=== PATIENT | female | born 1980 | race Caucasian/White ===

== ENCOUNTER 2020-09-25 18:38 | Outpatient (REF) | payer MEDICAID, SELFPAY ==
--- NOTE | 2020-09-25 | MR_ITS ---
EXAMINATION: MRI BRAIN WITHOUT CONTRAST CLINICAL INFORMATION: Seizure disorder. Headache, numbness, vertigo, and double vision. COMPARISON: None TECHNIQUE: Multiprojectional and multisequential images of brain were obtained without contrast. FINDINGS: There is no restricted diffusion seen to suspect any acute ischemia. The uriarte to white matter differentiation is maintained without any visible flow void signal abnormality on gradient-echo sequence to suspect an acute or chronic hemorrhage. No T2/FLAIR signal abnormality seen either. The lateral ventricles are symmetrical in size and configuration without enlargement. Bilateral temporal horns are symmetrical and normal. There is normal symmetry of bilateral temporal lobes especially the mesial segments are symmetrical and normal. There is normal flow void signal seen in the major cerebral vasculature. The paranasal sinuses are well aerated and clear. There is normal symmetry of optic globe and optic nerves. MR/MR head/brain wo con IMPRESSION: Unremarkable MRI brain without contrast.
== END 2020-09-25 18:39 | disposition home or self-care (01) ==
LOC: HO.MRI 18:38
PROVIDERS: Visit Provider Psychiatry & Neurology Neurology
DX: G40.909 Epilepsy, unspecified, not intractable, without status epilepticus (principal)
CPT/HCPCS: 70551

== ENCOUNTER 2020-09-25 19:29 | Emergency (ER) | payer MEDICAID, SELFPAY ==
[2020-09-25 19:57] VITALS: BP 99/55; PULSE 74; RESP 16; TEMP 37; O2SAT 98; BMI 29.7
--- NOTE | 2020-09-25 20:10 | XR_ITS ---
EXAMINATION: 1. LEFT ANKLE. 2. LEFT FOOT. CLINICAL INFORMATION: Pain. COMPARISON: None TECHNIQUE: 1. Left ankle. 3 views 2. Left foot. 3 views FINDINGS: 1. Left ankle. No fracture or dislocation. Ankle mortise is congruent. 2. Left foot. No fracture or dislocation. Joint spaces are normal. No soft tissue abnormality. XR/XR foot LT 2V IMPRESSION: 1. Left ankle. Normal. 2. Left foot. Normal.
--- NOTE | 2020-09-25 20:10 | XR_ITS ---
EXAMINATION: 1. LEFT ANKLE. 2. LEFT FOOT. CLINICAL INFORMATION: Pain. COMPARISON: None TECHNIQUE: 1. Left ankle. 3 views 2. Left foot. 3 views FINDINGS: 1. Left ankle. No fracture or dislocation. Ankle mortise is congruent. 2. Left foot. No fracture or dislocation. Joint spaces are normal. No soft tissue abnormality. XR/XR ankle LT min 3V IMPRESSION: 1. Left ankle. Normal. 2. Left foot. Normal.
--- NOTE | 2020-09-25 21:09 | ED.LOWEXIN ---
HPI - Extremity Injury (Lower) General Chief Complaint: Extremity Injury, Lower Stated Complaint: foot pain Time Seen by Provider: 09/25/20 20:10 Source: patient Mode of arrival: ambulatory Limitations: no limitations History of Present Illness HPI Narrative: patient presents to ED for left foot/big toe pain after foot was stepped on. Patient denies falling to the ground or any other trauma. Patient states he slightly twisted her ankle when her foot was stepped on. Related Data Previous Rx's Medication Instructions Recorded cyclobenzaprine 10 mg PO TID PRN #15 tab 09/25/20 naproxen 500 mg PO BID PRN #20 tab 09/25/20 Allergies Allergy/AdvReac Type Severity Reaction Status Date / Time No Known Allergies Allergy Verified 09/25/20 20:25 bee Allergy Unknown hives Uncoded 03/08/14 00:00 Review of Systems Review of Systems: Yes all other systems are reviewed and are negative Constitutional: Constitutional: Reports as per HPI and Reports no additional constitutional complaints Eyes: Eyes: Reports as per HPI and Reports no additional eye complaints ENT: Reports system reviewed and no additional complaints, except as documented and Reports as per HPI Cardiovascular: Cardiovascular: Reports as per HPI and Reports no additional cardiovascular complaints Respiratory: Respiratory: Reports as per HPI and Reports no additional respiratory complaints Gastrointestinal: Gastrointestinal: Reports as per HPI and Reports no additional gastrointestinal complaints Genitourinary: Genitourinary: Reports no additional female genitourinary complaints and Reports as per HPI Musculoskeletal: Musculoskeletal: Reports no additional musculoskeletal complaints and Reports as per HPI Comments: left foot/big toe pain Neurologic: Reports system reviewed and no additional complaints, except as documented and Reports as per HPI Psychiatric: Psychiatric: Reports no additional psychiatric complaints and Reports as per HPI [facility] Past Medical History Medical History (Updated 09/25/20 @ 21:23 by PAULINE Joaquin) Anxiety Asthma Depression Seizures Social History Social History Smoking Status: Former smoker Use of substances other than those prescribed or required for medical reasons: No Advance Directives: No Advance Directives Information Provided: No Physical Exam Vital Signs: Vital Signs: Vital Signs Temp Pulse Resp BP Pulse Ox 09/25/20 19:57 98.6 F 74 16 99/55 L 98 Body Mass Index 29.7 Const: General: cooperative, healthy appearing, comfortable, no acute distress, well developed and alert Orientation/consciousness: oriented to place, oriented to time and patient oriented x3 HENMT: Head: Yes normal to inspection, Yes No palpable skull fracture present, No contusion, No laceration, No raccoon eyes, No scalp tenderness and No Temporal artery tenderness present Eyes: General: appearance normal, both eyes and all related structures Visual Aguilar: normal visual aguilar by confrontation Neck: Neck: Yes normal visual inspection, Yes full ROM, Yes no lymphadenopathy and Yes no meningeal signs Chest: Chest palpation & inspection: normal inspection of the chest, normal palpation of entire chest wall and no localized rib tenderness Resp: Effort & Inspection: normal respiratory effort and able to speak in complete sentences Cardio: Jugular venous distension: no JVD Heart sounds: S1 normal heart sound present and S2 normal heart sound present GI: Inspection: Yes normal to inspection and No abdominal wall ecchymosis Palpation (GI): Soft to palpation, not firm, nontender and no guarding : General: No CVA tenderness and Yes no CVA tenderness Back/Spine/Pelvis: Back: no CVA tenderness, No CVA tenderness and No back tenderness Skin: General skin exam: no rashes or lesions noted Neuro: Other: limping when walking. General: oriented to person, oriented to place, oriented to time, patient oriented x3, no meningeal signs and CN's II-XI intact bilaterally Cranial nerves: Yes CN's II-XII intact bilaterally Extrem: Other: Left lower extremity positive for tenderness on palpation of dorsal aspect of foot near big toe and also on the toe. Negative for any ecchymosis. Negative for any tenderness on left ankle. Auguste test negative. Negative for any leg swelling, ecchymosis, calf pain, redness. Vascular exam is intact General: Yes normal to inspection and Yes full ROM Course Course Course Narrative: Patient will be given pain medication and patient will be sent for x-rays Reevaluation(s) Reevaluation #1: x-ray negative for any foot or ankle fracture. Patient prefer walking boot due to her living on 2nd floor not be able to use crutches. Time: 21:21 MDM - Extremity Injury (Lower) MDM Narrative Medical decision making narrative: foot sprain/contusion Discharge Plan Discharge Clinical Impression: Contusion, Foot sprain Patient Disposition: Home, Self-Care Instructions: Contusion in Adults (ED), Foot Sprain (ED) Additional Instructions: return to ED for any worsening pain, swelling, redness, ecchymoses, bluish discoloration of toes, numbness / tingling, fever, chills, chest pain, shortness of breath, or any other concerning symptoms. Please follow up with your PCP Prescriptions: New naproxen 500 mg tablet 500 mg PO BID PRN (Reason: pain) Qty: 20 RF: 0 cyclobenzaprine 10 mg tablet 10 mg PO TID PRN (Reason: muscle spasm) Qty: 15 RF: 0 Stand Alone Forms: Work/School Release Print Language: Urdu
[2020-09-25] MEDS: Ketorolac Tromethamine 30 MG/ML VIAL IM (21:24)
== END 2020-09-25 21:40 | disposition home or self-care (01) ==
PROVIDERS: Emergency Provider Emergency Medicine
DX: S90.32XA Contusion of left foot, initial encounter (principal); S93.602A Unspecified sprain of left foot, initial encounter; M79.672 Pain in left foot; Y29.XXXA Contact with blunt object, undetermined intent, initial encounter; Y93.9 Activity, unspecified; Y92.9 Unspecified place or not applicable; Y99.9 Unspecified external cause status; Z79.899 Other long term (current) drug therapy; Z87.891 Personal history of nicotine dependence
CPT/HCPCS: 73610; 73620; 96372; 99283; 99284; J1885

== ENCOUNTER 2020-10-12 12:32 | Outpatient (REF) | payer MEDICAID, SELFPAY ==
--- NOTE | 2020-10-12 12:40 | EEG_ITS ---
24-hour ambulatory EEG The waking background activity consists of a symmetrical, well-defined 10 hertz posterior alpha frequency, intermixed anteriorly with low-voltage fast frequencies. Drowsiness is characterized by diffuse theta slowing. Stages 1 to 3 of sleep are noted with symmetrical sleep spindles, vertex sharp transients, and K complexes. Brief periods of delta sleep are also noted. Arousals are frequent and unremarkable. A few instances of small sharp and slow discharges are seen from the left hemisphere. Two episodes of 2 to 3-second bursts of high voltage 4 to 5 hertz theta are seen symmetrically over the frontal region. The patient was asymptomatic during that time. There is a notation of an event of lightheadedness in the patient's diary, however, there is no abnormality on the EEG that coincides with that. IMPRESSION: This EEG is considered suspicious because of a couple of sharp and slow discharges from the left hemisphere and 2 bursts of high voltage 2 to 3-second 4 to 5 hertz theta from the frontal region. Clinical correlation is suggested. These findings are not developed well enough to be diagnostic for seizure. MD TESSA Martin/CHEVY / [id number]
== END 2020-10-12 12:33 | disposition home or self-care (01) ==
LOC: HO.NEURO 12:32
PROVIDERS: Visit Provider Psychiatry & Neurology Neurology
DX: G40.909 Epilepsy, unspecified, not intractable, without status epilepticus (principal)
CPT/HCPCS: 95708

== ENCOUNTER 2020-11-07 13:29 | Outpatient (REF) | payer MEDICAID, SELFPAY | END 2020-11-07 13:30 | disposition home or self-care (01) | LOC: HO.LAB 13:29 | PROVIDERS: Visit Provider Internal Medicine | DX: Z20.828 Contact with and (suspected) exposure to other viral communicable diseases (principal) | CPT/HCPCS: C9803; U0003 ==

== ENCOUNTER 2020-11-13 08:06 | Outpatient (REF) | payer MEDICAID, SELFPAY | END 2020-11-13 08:07 | disposition home or self-care (01) | LOC: HO.LAB 08:06 | PROVIDERS: PCP Nurse Practitioner Primary Care; Visit Provider Internal Medicine | DX: Z20.828 Contact with and (suspected) exposure to other viral communicable diseases (principal) | CPT/HCPCS: C9803; U0003 ==

== ENCOUNTER 2021-02-26 09:33 | Emergency (ER) | payer MEDICAID, SELFPAY ==
--- NOTE | 2021-02-26 | ECG_ITS ---
Test Reason : SYNCOPE Blood Pressure : / mmHG Vent. Rate : 069 BPM Atrial Rate : 069 BPM P-R Int : 116 ms QRS Dur : 082 ms QT Int : 398 ms P-R-T Axes : 048 075 038 degrees QTc Int : 426 ms Normal sinus rhythm Normal ECG No previous ECGs available Referred By: Generic ED Physician Electronically Signed By:COLTEN TIRADO MD
[2021-02-26 09:59] VITALS: BP 108/57; PULSE 70; RESP 18; TEMP 36.7; O2SAT 98; BMI 25.8
--- NOTE | 2021-02-26 10:20 | PC.NURSE ---
Pt went to stand to get out of chair in triage and stated that she was dizzy. She was lowered to the floor because she felt suddenly faint. She never lost consciousness but felt very weak and eyes closed. She was able to groan in response to questions being asked. Pt brought to stretcher in [facility] area as she has reported numerous covid-like symptoms.
--- NOTE | 2021-02-26 10:50 | ED_ITS ---
HPI - General Adult General Chief complaint: Dyspnea Stated complaint: asthma - SOB Time Seen by Provider: 02/26/21 10:50 Source: patient Mode of arrival: ambulatory Limitations: no limitations History of Present Illness HPI narrative: dizziness and shortness of breath for one week Onset (ago): week(s) Severity: moderate Quality: other (lightheaded and chills) Pain Consistency: intermittent Related Data Previous Rx's Medication Instructions Recorded cyclobenzaprine 10 mg PO TID PRN #15 tab 09/25/20 naproxen 500 mg PO BID PRN #20 tab 09/25/20 Allergies Allergy/AdvReac Type Severity Reaction Status Date / Time bee Allergy Unknown hives Uncoded 02/26/21 09:59 Review of Systems Constitutional: Constitutional: Reports no additional constitutional complaints Eyes: Eyes: Reports no additional eye complaints ENT: Denies dizziness Cardiovascular: Cardiovascular: Reports no additional cardiovascular complaints Respiratory: Respiratory: Reports as per HPI Gastrointestinal: Gastrointestinal: Reports no additional gastrointestinal complaints Genitourinary: Genitourinary: Reports no additional female genitourinary complaints Musculoskeletal: Musculoskeletal: Reports no additional musculoskeletal complaints Integumentary/Breasts: Skin/Breast: Denies rash Neurologic: Reports system reviewed and no additional complaints, except as documented, Denies dizziness and Denies Sensory deficit (Neuro) Psychiatric: Psychiatric: Denies anxiety PMFSH Past Medical History Medical History Anxiety Asthma Depression Seizures Social History Social History Smoking Status: Former smoker Advance Directives: No Physical Exam Vital Signs: Vital Signs: Last Vital Signs Temp 98.0 F 02/26/21 09:59 Pulse 70 02/26/21 09:59 Resp 18 02/26/21 09:59 BP 108/57 L 02/26/21 09:59 Pulse Ox 98 02/26/21 09:59 Body Mass Index 25.8 Const: General: healthy appearing Nutritional Appearance: average body habitus Orientation/consciousness: oriented to person and patient oriented x3 Limitations: no limitations HENMT: Head: Yes normal to inspection Ears: external ears normal General nose exam: Normal external nose present Mouth: Normal oral and palatal mucosa present and oropharynx normal Throat: Yes posterior oropharynx normal Eyes: General: appearance normal, both eyes and all related structures Neck: Other: supple Neck: Yes normal visual inspection Chest: Chest palpation & inspection: normal inspection of the chest Resp: Auscultation: clear to auscultation bilaterally Cardio: Jugular venous distension: no JVD Rate: regular rate Rhythm: regular rhythm Heart sounds: S1 normal heart sound present and S2 normal heart sound present GI: Inspection: Yes normal to inspection Palpation (GI): Soft to palpation, nontender and No hepatosplenomegaly present Auscultation: normal bowel sounds : General: Yes no CVA tenderness Back/Spine/Pelvis: Back: no CVA tenderness Skin: Other: old colon to face and hands Neuro: General: oriented to person and patient oriented x3 Cranial nerves: Yes CN's II-XII intact bilaterally Motor exam (neuro): 5/5 motor strength present throughout Sensory Exam: No Sensory deficit (Neuro) Extrem: General: Yes normal to inspection Psych: Appearance: grossly normal Course Course Course Narrative: resting comfortably Medical Decision Making MDM Narrative Medical decision making narrative: chemistries and CBC with in normal limits. Pending COVID, still concerned about Covid but normal oxygen. Lab Data Result diagrams: 02/26/21 11:31 02/26/21 11:31 Labs: Lab Results 02/26/21 02/26/21 Range/Units 11:31 11:31 WBC 7.1 (4.8-10.8) X10*3/uL RBC 4.42 (4.20-5.50) X10*6/uL Hgb 11.9 L (12.0-16.0) g/dl Hct 37.9 (37-47) % MCV 85.7 (80-98) fL MCH 26.9 L (27.0-33.0) pg MCHC 31.4 (31.0-35.0) g/dl RDW 15.8 (11.0-16.0) % Plt Count 338 (160-400) X10*3/uL MPV 10.2 (9.4-12.3) fL Immature Gran % (Auto) 0.3 (0.0-0.4) % Neut % (Auto) 63.8 (45-73) % Lymph % (Auto) 27.6 (20-40) % Jefferson % (Auto) 7.0 (2-11) % Eos % (Auto) 1.3 (0-4) % Baso % (Auto) 0.0 (0-2) % Lymph # (Auto) 2.0 (1.2-4.9) X10*3/uL Jefferson # (Auto) 0.5 (0.1-1.2) X10*3/uL Eos # (Auto) 0.1 (0.0-0.4) X10*3/uL Baso # (Auto) 0.0 (0.0-0.2) X10*3/uL Abs Immat Gran (auto) 0.02 (0.00-0.03) X10*3/uL Absolute Neuts (auto) 4.5 (2.0-8.3) X10*3/uL Absolute Nucleated RBC 0.000 (0.0-0.012) X10*3/uL Nucleated RBC % (auto) 0.0 (0.0-0.2) /100WBC Sodium 139 (135-145) mmol/L Potassium 3.8 (3.3-5.1) mmol/L Chloride 107 (96-108) mmol/L Carbon Dioxide 25 (22-29) mmol/L Anion Gap 11 L (12-20) BUN 14 (9-16) mg/dL Creatinine 0.63 (0.5-1.4) mg/dL Estim Creat Clear Calc 90.2 Estimated GFR > 60 Random Glucose 93 (60-115) mg/dL Calcium 8.8 (8.4-10.2) mg/dL Discharge Plan Discharge Clinical Impression: Upper respiratory infection Qualifiers: URI type: unspecified viral URI Qualified Code(s): J06.9 - Acute upper respiratory infection, unspecified Patient Disposition: Home, Self-Care Prescriptions: No Action naproxen 500 mg tablet 500 mg PO BID PRN (Reason: pain) Qty: 20 RF: 0 cyclobenzaprine 10 mg tablet 10 mg PO TID PRN (Reason: muscle spasm) Qty: 15 RF: 0 Referrals: Dawna Conklin, ALISA [Emergency Nurse] - 2 days
[2021-02-26 11:36] LABS: MANUAL DIFF FLAG NO
[2021-02-26 11:37] LABS: Eosinophils Absolute Auto 0.1 X10*3/uL (0.0-0.4); Eosinophils Percent Auto 1.3 % (0-4); Hematocrit 37.9 % (37-47); Hemoglobin 11.9 g/dl (12.0-16.0); Imm Gran Abs Auto 0.02 X10*3/uL (0.00-0.03); Imm Gran Pct Auto 0.3 % (0.0-0.4); Lymphocytes Percent Auto 27.6 % (20-40); Mean Corpuscular HGB Conc 31.4 g/dl (31.0-35.0); Mean Corpuscular Hemoglobin 26.9 pg (27.0-33.0); Mean Corpuscular Volume 85.7 fL (80-98); Mean Platelet Volume 10.2 fL (9.4-12.3); Monocytes Absolute Auto 0.5 X10*3/uL (0.1-1.2); Neutrophils Absolute Auto 4.5 X10*3/uL (2.0-8.3); Neutrophils Percent Auto 63.8 % (45-73); Platelet Count 338 X10*3/uL (160-400); Red Blood Count 4.42 X10*6/uL (4.20-5.50); Red Cell Distribution Width 15.8 % (11.0-16.0); White Blood Count 7.1 X10*3/uL (4.8-10.8)
[2021-02-26 12:09] LABS: Anion Gap 11 (12-20); Blood Urea Nitrogen 14 mg/dL (9-16); Calcium 8.8 mg/dL (8.4-10.2); Carbon Dioxide 25 mmol/L (22-29); Chloride 107 mmol/L (96-108); Creatinine Clr Calc Pharmacy 90.2; Estimated Glomerular Filt Rate > 60; Glucose Random 93 mg/dL (60-115); Potassium 3.8 mmol/L (3.3-5.1); Sodium 139 mmol/L (135-145)
[2021-02-26 13:06] LABS: Glucose, Whole Blood 107 mg/dL (60-115)
[2021-02-26 13:17] LABS: Influenza A PCR NEGATIVE (Negative); Influenza B PCR NEGATIVE (Negative); Resp Syncy Virus RNA Qual PCR NEGATIVE (Negative); SARS COV2 PCR INHOUSE POSITIVE (Negative)
== END 2021-02-26 14:00 | disposition home or self-care (01) ==
PROVIDERS: Emergency Provider Emergency Medicine; PCP Nurse Practitioner Primary Care
DX: J06.9 Acute upper respiratory infection, unspecified (principal); R06.00 Dyspnea, unspecified; R42 Dizziness and giddiness; Z79.899 Other long term (current) drug therapy; Z87.891 Personal history of nicotine dependence; Z20.822 Contact with and (suspected) exposure to COVID-19
CPT/HCPCS: 0241U; 36415; 80048; 82947; 85025; 93005; 99283

== ENCOUNTER 2022-05-23 12:48 | Outpatient (REF) | payer MEDICAID, SELFPAY ==
--- NOTE | 2022-05-23 12:54 | EEG_ITS ---
HISTORY OF PRESENT ILLNESS: This is the waking background activity consists of a moderate voltage 11 hertz posterior alpha frequency, intermixed anteriorly with low-voltage fast frequencies. Drowsiness is characterized with diffuse theta slowing. During sleep, symmetrical frontal central sleep spindles, vertex sharp transients, and K complexes developed. Delta sleep is noted. Arousals are unremarkable. Three episodes of low to medium amplitude sharp waves are seen from the left hemisphere occurring in isolated forms. IMPRESSION: This 24-hour ambulatory EEG is considered minimally abnormal due to 3 isolated sharp transients seen from the left hemisphere that may indicate some element of underlying cerebral irritability. No definite seizure discharges are seen. MD TESSA Martin/CHEVY / [id number]
== END 2022-05-23 12:49 | disposition home or self-care (01) ==
LOC: HO.NEURO 12:48
PROVIDERS: PCP Nurse Practitioner Primary Care; Visit Provider Psychiatry & Neurology Neurology
DX: G40.909 Epilepsy, unspecified, not intractable, without status epilepticus (principal)
CPT/HCPCS: 95708

== ENCOUNTER 2023-12-10 12:13 | Outpatient (REF) | payer MEDICAID, SELFPAY ==
[2023-12-10 13:53] LABS: Valproate < 12.5 mcg/mL (50.0-100.0)
== END 2023-12-10 12:14 | disposition home or self-care (01) ==
LOC: HO.LAB 12:13
PROVIDERS: PCP Nurse Practitioner Primary Care; Visit Provider Psychiatry & Neurology Neurology
DX: G40.909 Epilepsy, unspecified, not intractable, without status epilepticus (principal); Z79.899 Other long term (current) drug therapy
CPT/HCPCS: 36415; 80164

== ENCOUNTER 2024-05-06 14:51 | Outpatient (REF) | payer MEDICAID, SELFPAY ==
[2024-05-06 16:37] LABS: Valproate 39.9 mcg/mL (50.0-100.0)
== END 2024-05-06 14:52 | disposition home or self-care (01) ==
LOC: HO.LAB 14:51
PROVIDERS: PCP Internal Medicine; Visit Provider Psychiatry & Neurology Neurology
DX: G40.909 Epilepsy, unspecified, not intractable, without status epilepticus (principal)
CPT/HCPCS: 36415; 80164

== ENCOUNTER 2024-05-12 08:33 | Outpatient (REF) | payer MEDICAID, SELFPAY ==
--- NOTE | ~2024-05-12 | XR_ITS ---
EXAMINATION: XR FOOT, LEFT CLINICAL INFORMATION: Left foot pain Injured toe in May 2023 COMPARISON: Left foot 09/25/2020 TECHNIQUE: AP, lateral, and oblique views of the left foot. FINDINGS: The bones and soft tissues are normal. No fracture. Alignment is anatomic. Joint spaces are maintained. Small calcific density is seen at the insertion of the Achilles tendon. XR/XR foot LT min 3V IMPRESSION: No acute bony abnormality.
--- NOTE | ~2024-05-12 | XR_ITS ---
EXAMINATION: XR CHEST CLINICAL INFORMATION: COPD COMPARISON: Chest 120-stat chest 11/25/2019 TECHNIQUE: 2 views of the chest were obtained. FINDINGS: No significant abnormality is noted involving the heart, lungs, mediastinum, bony thorax or soft tissues. XR/XR chest 2V IMPRESSION: No acute disease.
[2024-05-12 08:42] LABS: MANUAL DIFF FLAG NO
[2024-05-12 09:11] LABS: Basophils Percent Auto 0.5 % (0-2); Eosinophils Absolute Auto 0.2 X10*3/uL (0.0-0.4); Hematocrit 37.3 % (37.0-47.0); Hemoglobin 11.8 g/dl (12.0-16.0); Imm Gran Abs Auto 0.04 X10*3/uL (0.00-0.03); Imm Gran Pct Auto 0.5 % (0.0-0.4); Lymphocytes Absolute Auto 2.4 X10*3/uL (1.2-4.9); Lymphocytes Percent Auto 28.9 % (20-40); Mean Corpuscular HGB Conc 31.6 g/dl (31.0-35.0); Mean Platelet Volume 10.4 fL (9.4-12.3); Monocytes Absolute Auto 0.7 X10*3/uL (0.1-1.2); Monocytes Percent Auto 7.8 % (2-11); Neutrophils Absolute Auto 5.1 x10*3/uL (2.0-8.3); Neutrophils Percent Auto 60.3 % (45-73); Platelet Count 390 X10*3/uL (160-400); Red Blood Count 4.72 X10*6/uL (4.20-5.50); Red Cell Distribution Width 17.5 % (11.0-16.0); White Blood Count 8.4 X10*3/uL (4.8-10.8)
[2024-05-12 10:01] LABS: Alanine Aminotransferase 13 U/L (0-31); Alkaline Phosphatase 78 U/L (39-117); Anion Gap 12 (12-20); Aspartate Amino Transferase 14 U/L (5-31); Bilirubin Total 0.2 mg/dL (0.0-1.0); Blood Urea Nitrogen 15 mg/dL (9-16); Calcium 8.5 mg/dL (8.4-10.2); Carbon Dioxide 26 mmol/L (22-29); Chloride 106 mmol/L (96-108); Cholesterol 116 mg/dL (<200); Estimated Glomerular Filt Rate > 60; Glucose Random 89 mg/dL (60-115); HDL Cholesterol 52 mg/dL (>40); LDL Cholesterol Calculated 51 mg/dL (<100); Potassium 3.8 mmol/L (3.3-5.1); Sodium 140 mmol/L (135-145); Total Protein 6.6 g/dL (6.5-8.0); Triglycerides 65 mg/dL (<150)
== END 2024-05-12 08:34 | disposition home or self-care (01) ==
LOC: HO.XRAY 08:33
PROVIDERS: PCP Internal Medicine; Visit Provider Internal Medicine
DX: Z00.00 Encounter for general adult medical examination without abnormal findings (principal); J44.9 Chronic obstructive pulmonary disease, unspecified; M79.672 Pain in left foot; F31.9 Bipolar disorder, unspecified; G40.109 Localization-related (focal) (partial) symptomatic epilepsy and epileptic syndromes with simple partial seizures, not intractable, without status epilepticus; J45.20 Mild intermittent asthma, uncomplicated
CPT/HCPCS: 36415; 71046; 73630; 80053; 80061; 85025

== ENCOUNTER 2024-07-01 13:35 | Outpatient (AMB) | payer MEDICAID, SELFPAY ==
--- NOTE | 2024-07-01 14:06 | A.OFFVIS_ITS ---
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 Patient reports about 2 months ago she injured her right ankle, when she was stepping of her step causing her to twist right ankle. For her left foot she was stepping on about a year ago and her pain has been recently increasing. Her pain is located at the base of her 2nd and 3rd digit at the top and bottom of her foot. She is unable to bend her toes. Intermittent swelling as well as numbness and tingling. 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 She reports she stepped off her step causing her to twist her right ankle. She also stubbed on her left foot about a year ago that has been recently worsening. She currently states she has pain at the base of her 2 nd and 3rd digit at the top and bottom of bilateral feet that is worse on her left foot. She is unable to bend her knee and cannot walk for than 30 minutes due to the pain. She also experiences intermittent swelling, numbness and tingling in her feet. Her pain is aggravated with icing and she finds no relief with ibuprofen. 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 Review of Systems Const All systems reviewed & are unremarkable except as noted in HPI and below Physical Exam Const General: cooperative, healthy appearing, comfortable, no acute distress, well developed and alert Orientation/consciousness: patient oriented x3 HEENT Head: Yes normal to inspection, Yes normocephalic and Yes atraumatic Eyes General: appearance normal, both eyes and all related structures Resp Effort & Inspection: normal respiratory effort and able to speak in complete sentences Cardio Rate: regular rate Peripheral pulses: Peripheral pulses 2+ throughout GI Palpation (GI): Soft to palpation Skin Lesions: no lesions Rashes: no rashes Neuro General: patient oriented x3 Extrem Other: Left foot: Normal to inspection. She has mild swelling over the dorsum of the foot with hypersensitivity to light palpation with the dorsum of the foot in line with the 2nd and 3rd toe. Hypersensitivity along the plantar aspect of the foot. Significant weakness with plantarflexion and dorsiflexion, inversion and eversion with and without resistance. Pulses are present and sensation are intact. Assessment & Plan Assessment & Plan (1) Tendinitis of left foot: Code(s): M77.52 - Other enthesopathy of left foot and ankle Category: Medical Plan An order for EMG of the BLE was ordered to further evaluate the nerve function. I encouraged physical therapy to activate her motion and strengthening and work on desensitization. Once the EMG is complete, I will contact her with the results. Orders: Orders NE electromyogram (EMG) Today R20.0 - Anesthesia of skin, R20.2 - Paresthesia of skin PT Evaluation and Treatment Today M77.52 - Other enthesopathy of left foot and ankle NE nerve conduction velocity Today R20.0 - Anesthesia of skin, R20.2 - Paresthesia of skin Patient Instructions: Scribed for Cuauhtemoc Campos PA-C, by Pelon Jones hospitalist medical director, on 07/01/2024 at 2:15 PM EST.? I, Cuauhtemoc Campos PA-C, have personally reviewed and agree with the information entered by the scribe. Coding Level of Care Code New Pt Level 3 (49506) Diagnoses Tendinitis of left foot M77.52
== END 2024-07-01 14:50 | disposition home or self-care (01) ==
PROVIDERS: PCP Internal Medicine; Visit Provider Physician Assistant
DX: M77.52 Other enthesopathy of left foot and ankle (principal)
CPT/HCPCS: 99203

== ENCOUNTER → 2024-07-01 13:35 | Outpatient (BNVA) | payer MEDICAID, SELFPAY | PROVIDERS: PCP Internal Medicine; Visit Provider Physician Assistant | DX: M77.52 Other enthesopathy of left foot and ankle (principal) | CPT/HCPCS: 99212 ==

== ENCOUNTER → 2024-07-20 12:16 | Outpatient (BNVA) | payer MEDICAID, SELFPAY | PROVIDERS: PCP Internal Medicine; Visit Provider Physician Assistant Surgical ==

== ENCOUNTER 2024-09-15 09:04 | Outpatient (REF) | payer MEDICAID, SELFPAY ==
--- NOTE | ~2024-09-15 | XR_ITS ---
EXAMINATION: XR CHEST CLINICAL INFORMATION: Respiratory TB. Preop chest x-ray. COMPARISON: 12/12/2023. TECHNIQUE: 2 views of the chest were obtained. FINDINGS: Cardiac, hilar, and mediastinal contours are normal. The lungs are clear bilaterally. There is no pneumothorax, effusion, or consolidation. There is no bony or soft tissue abnormality. Nipple bars are again noted in place. XR/XR chest 2V IMPRESSION: Normal chest. Electronically signed by: Eduardo Haynes MD 09/24/2024 04:15 PM EDT
[2024-09-15 09:36] LABS: MANUAL DIFF FLAG NO
[2024-09-15 10:34] LABS: Basophils Absolute Auto 0.1 X10*3/uL (0.0-0.2); Basophils Percent Auto 0.7 % (0-2); Eosinophils Absolute Auto 0.3 X10*3/uL (0.0-0.4); Eosinophils Percent Auto 3.6 % (0-4); Hematocrit 38.7 % (37.0-47.0); Hemoglobin 11.7 g/dl (12.0-16.0); Imm Gran Abs Auto 0.02 X10*3/uL (0.00-0.03); Imm Gran Pct Auto 0.3 % (0.0-0.4); Lymphocytes Absolute Auto 2.5 X10*3/uL (1.2-4.9); Lymphocytes Percent Auto 35.4 % (20-40); Mean Corpuscular HGB Conc 30.2 g/dl (31.0-35.0); Mean Corpuscular Hemoglobin 23.9 pg (27.0-33.0); Mean Platelet Volume 10.6 fL (9.4-12.3); Monocytes Absolute Auto 0.5 X10*3/uL (0.1-1.2); Monocytes Percent Auto 7.6 % (2-11); Neutrophils Absolute Auto 3.6 x10*3/uL (2.0-8.3); Neutrophils Percent Auto 52.4 % (45-73); Platelet Count 468 X10*3/uL (160-400); Red Cell Distribution Width 18.4 % (11.0-16.0)
[2024-09-15 10:36] LABS: INTERNATIONAL NORM RATIO 0.9 (0.9-1.1); Prothrombin Time 10.8 SEC (10.9-12.4)
[2024-09-15 11:33] LABS: Alanine Aminotransferase 17 U/L (0-31); Albumin Level 4.1 g/dL (3.5-5.0); Alkaline Phosphatase 92 U/L (39-117); Anion Gap 12 (12-20); Aspartate Amino Transferase 17 U/L (5-31); Bilirubin Total 0.3 mg/dL (0.0-1.0); Blood Urea Nitrogen 14 mg/dL (9-16); Calcium 9.2 mg/dL (8.4-10.2); Carbon Dioxide 24 mmol/L (22-29); Chloride 108 mmol/L (96-108); Estimated Glomerular Filt Rate > 60; Glucose Random 90 mg/dL (60-115); Sodium 140 mmol/L (135-145); Total Protein 6.6 g/dL (6.5-8.0)
== END 2024-09-15 09:05 | disposition home or self-care (01) ==
LOC: HO.XRAY 09:04
PROVIDERS: PCP Internal Medicine; Visit Provider Internal Medicine
DX: Z00.00 Encounter for general adult medical examination without abnormal findings (principal); Z11.1 Encounter for screening for respiratory tuberculosis
CPT/HCPCS: 36415; 71046; 80053; 85025; 85610

== ENCOUNTER → 2024-09-15 09:35 | Outpatient (BNV) | payer MEDICAID, SELFPAY | PROVIDERS: PCP Internal Medicine; Visit Provider Radiology Diagnostic Radiology | DX: Z01.818 Encounter for other preprocedural examination (principal) | CPT/HCPCS: 71046 ==

== ENCOUNTER 2024-09-22 10:02 | Outpatient (REF) | payer MEDICAID, SELFPAY ==
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
== END 2024-09-22 10:03 | disposition home or self-care (01) ==
LOC: HO.NEURO 10:02
PROVIDERS: PCP Internal Medicine; Visit Provider Physician Assistant
DX: R20.0 Anesthesia of skin (principal); R20.2 Paresthesia of skin
CPT/HCPCS: 95885; 95909

== ENCOUNTER → 2024-09-22 10:04 | Outpatient (BNV) | payer MEDICAID, SELFPAY | PROVIDERS: PCP Internal Medicine; Visit Provider Physical Medicine & Rehabilitation | DX: M54.16 Radiculopathy, lumbar region (principal); R20.0 Anesthesia of skin; R20.2 Paresthesia of skin | CPT/HCPCS: 95885; 95909 ==

== ENCOUNTER 2024-09-28 09:50 | Outpatient (REF) | payer MEDICAID, SELFPAY ==
[2024-09-28 10:26] LABS: MANUAL DIFF FLAG NO
[2024-09-28 11:03] LABS: Basophils Percent Auto 0.5 % (0-2); Eosinophils Absolute Auto 0.1 X10*3/uL (0.0-0.4); Eosinophils Percent Auto 2.3 % (0-4); Hematocrit 38.4 % (37.0-47.0); Hemoglobin 11.9 g/dl (12.0-16.0); Imm Gran Abs Auto 0.02 X10*3/uL (0.00-0.03); Imm Gran Pct Auto 0.3 % (0.0-0.4); Lymphocytes Percent Auto 32.9 % (20-40); Mean Corpuscular Hemoglobin 24.4 pg (27.0-33.0); Mean Corpuscular Volume 78.7 fL (80.0-98.0); Mean Platelet Volume 10.6 fL (9.4-12.3); Monocytes Absolute Auto 0.5 X10*3/uL (0.1-1.2); Monocytes Percent Auto 7.9 % (2-11); Neutrophils Absolute Auto 3.5 x10*3/uL (2.0-8.3); Neutrophils Percent Auto 56.1 % (45-73); Platelet Count 410 X10*3/uL (160-400); Red Blood Count 4.88 X10*6/uL (4.20-5.50); Red Cell Distribution Width 18.3 % (11.0-16.0); White Blood Count 6.2 X10*3/uL (4.8-10.8)
[2024-09-28 11:09] LABS: Prothrombin Time 11.2 SEC (10.9-12.4)
[2024-09-28 11:56] LABS: Ferritin 13 ng/mL (10-250)
== END 2024-09-28 09:51 | disposition home or self-care (01) ==
LOC: HO.LAB 09:50
PROVIDERS: PCP Internal Medicine; Visit Provider Internal Medicine
DX: D64.9 Anemia, unspecified (principal); Z41.1 Encounter for cosmetic surgery; F17.201 Nicotine dependence, unspecified, in remission; F32.2 Major depressive disorder, single episode, severe without psychotic features; G40.109 Localization-related (focal) (partial) symptomatic epilepsy and epileptic syndromes with simple partial seizures, not intractable, without status epilepticus; J45.909 Unspecified asthma, uncomplicated
CPT/HCPCS: 36415; 82728; 85025; 85610

== ENCOUNTER 2024-10-11 12:47 | Outpatient (REF) | payer MEDICAID, SELFPAY ==
[2024-10-11 13:34] LABS: Partial Thromboplastin Time 33.1 SEC (26.0-36.8)
== END 2024-10-11 12:48 | disposition home or self-care (01) ==
LOC: HO.LAB 12:47
PROVIDERS: PCP Internal Medicine; Visit Provider Internal Medicine
DX: F32.2 Major depressive disorder, single episode, severe without psychotic features (principal); F17.201 Nicotine dependence, unspecified, in remission; G40.109 Localization-related (focal) (partial) symptomatic epilepsy and epileptic syndromes with simple partial seizures, not intractable, without status epilepticus; J45.909 Unspecified asthma, uncomplicated; Z41.1 Encounter for cosmetic surgery
CPT/HCPCS: 36415; 85730

== ENCOUNTER 2024-10-18 09:10 | Outpatient (REF) | payer MEDICAID, SELFPAY ==
[2024-10-18 09:36] LABS: MANUAL DIFF FLAG NO
[2024-10-18 09:57] LABS: Basophils Absolute Auto 0.1 X10*3/uL (0.0-0.2); Basophils Percent Auto 0.7 % (0-2); Eosinophils Absolute Auto 0.2 X10*3/uL (0.0-0.4); Eosinophils Percent Auto 2.2 % (0-4); Hematocrit 40.9 % (37.0-47.0); Hemoglobin 12.6 g/dl (12.0-16.0); Imm Gran Abs Auto 0.01 X10*3/uL (0.00-0.03); Imm Gran Pct Auto 0.1 % (0.0-0.4); Lymphocytes Absolute Auto 2.6 X10*3/uL (1.2-4.9); Lymphocytes Percent Auto 35.4 % (20-40); Mean Corpuscular HGB Conc 30.8 g/dl (31.0-35.0); Mean Corpuscular Volume 81.3 fL (80.0-98.0); Mean Platelet Volume 10.3 fL (9.4-12.3); Monocytes Absolute Auto 0.7 X10*3/uL (0.1-1.2); Monocytes Percent Auto 9.9 % (2-11); Neutrophils Absolute Auto 3.8 x10*3/uL (2.0-8.3); Neutrophils Percent Auto 51.7 % (45-73); Platelet Count 397 X10*3/uL (160-400); Red Blood Count 5.03 X10*6/uL (4.20-5.50); Red Cell Distribution Width 20.8 % (11.0-16.0); White Blood Count 7.3 X10*3/uL (4.8-10.8)
[2024-10-18 11:07] LABS: Ferritin 29 ng/mL (10-250)
== END 2024-10-18 09:11 | disposition home or self-care (01) ==
LOC: HO.LAB 09:10
PROVIDERS: PCP Internal Medicine; Visit Provider Internal Medicine
DX: D50.9 Iron deficiency anemia, unspecified (principal)
CPT/HCPCS: 36415; 82728; 85025

== ENCOUNTER 2025-06-27 09:19 | Outpatient (AMB) | payer MEDICAID, SELFPAY ==
--- OUTSIDE RECORDS SUMMARY | 2024-12-29 03:30 | XMS_ITS ---
Author Organization [facility] Address [address] [place] [address] Care Team Providers Care Wood Fence Installer Name Role Phone Jessenia Russell Primary Care Provider Unavailab Tom Choi [phone] REASON FOR VISIT screening Encounters Encounter Location Date Provider [place] [facility] [place] [address] [place], [place] [phone] 12/29/2024 Tom Lam Plan Of Treatment No Information Progress Notes * DUY BROOKESDOB:1980 ( 45 yo F)Acc No.[id number]:12/29/2024 COLON WITH MAC Patient: NYDIA WHITE Provider: Wild Lam MD :1980 A ge:44 Y S ex:Female Date:12/29/2024 Address:[address] [place], [place] [id number] Pcp:Jessenia Russell Subjective: * Chief Complaints: * 1 . Screening. * Medical History: Objective: * Vitals: Assessment: Plan: * Treatment: * * The named appointment provid er may or may not be the originator of this progress note, and it is not deemed complete until electronically signed by the appointment provider. Sign off status: Pending * Provider: Wild Lam MD Date: 0 12/29/2024 Generated for Drake vicente/Piper/Harinder on: 0 06/27/2025 09:46 AM EDT
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
== END 2025-06-27 09:42 | disposition home or self-care (01) ==
LOC: HO.HSM 09:20
PROVIDERS: PCP Internal Medicine; Visit Provider Registered Nurse
DX: G40.909 Epilepsy, unspecified, not intractable, without status epilepticus (principal); G43.909 Migraine, unspecified, not intractable, without status migrainosus
CPT/HCPCS: 99214

== ENCOUNTER → 2025-06-27 09:19 | Outpatient (BNVA) | payer MEDICAID, SELFPAY | PROVIDERS: PCP Internal Medicine; Visit Provider Registered Nurse | DX: G43.909 Migraine, unspecified, not intractable, without status migrainosus (principal); Z86.69 Personal history of other diseases of the nervous system and sense organs | CPT/HCPCS: 99212 ==

== ENCOUNTER 2025-08-01 10:13 | Outpatient (AMB) | payer MEDICAID, SELFPAY ==
--- OUTSIDE RECORDS SUMMARY | 2024-12-29 03:30 | XMS_ITS ---
Author Organization [facility] Address [address] [place] [address] Care Team Providers Care Field Hockey And Lacrosse Coach Name Role Phone Jessenia Russell Primary Care Provider Unavailab Tom Choi [phone] REASON FOR VISIT screening Encounters Encounter Location Date Provider Diagnosis [facility] [place] [address] [place], [place] [phone] 12/29/2024 Tom Lam Plan Of Treatment No Information Progress Notes * DUY BROOKESDOB:1980 ( 45 yo F)Acc No.[id number]:12/29/2024 COLON WITH MAC Patient: NYDIA WHITE Provider: Wild Lam MD :1980 A ge:44 Y S ex:Female Date:12/29/2024 Address:[address] [place], [place] [id number] Pcp:Jessenia Russell Subjective: * Chief Complaints: * [...] MD Date: 0 12/29/2024 Generated for Drake vicente/Piper/Janelleitting on: 0 08/01/2025 12:07 PM EDT
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
--- OUTSIDE RECORDS SUMMARY | 2025-08-01 12:08 | XMS_ITS | Clinical Summary ---
Author Organization [employer] Address [address] [place] [address] Care Team Providers Care Learning And Development Specialist Name Role Phone Unavailable Primary Care Provider Unavailabl e Encounters Date Type Department Care Team Description 07/06/2025 Telephone [facility] [address] [place] [address] Paz Villatoro [place] from Last 3 Months Social History Tobacco Use Types Packs/Day Years Used Date Smoking Tobacco: Never Assessed Comments Unknown Sex and Gender Information Value Date Recorded Sex Assigned at Female 09/23/2022 10:17 AM EDT Legal Sex Female 10:17 AM EDT Gender Identity Female 09/23/2022 10:17 AM EDT Sexual Orientation Choose not to disclose 2021 10:17 AM EDT Last Filed Vital Signs Vital Sign Reading Time Taken Comments Blood Pressure 118/60 05/01/2021 12:06 AM EDT Pulse 66 05/01/2021 12:06 AM EDT Temperature - - Respiratory Rate - - Oxygen Saturation - - Inhaled Oxygen Concentration - - Weight 62.7 kg (138 lb 3.2 oz) 05/01/2021 12:06 AM EDT Height 149.9 cm (4' 11 ) 05/01/2021 12:06 AM EDT Body Mass Index 27.91 05/01/2021 12:06 AM EDT Plan of Treatment Health Maintenance Due Date Last Done Comments CT Colonography 1978 Colonoscopy 1978 Colorectal Cancer Screening 1978 Depression Screening 1978 FIT DNA/Cologuard 1978 FIT 1978 FOBT 1978 SDOH Screening 1978 Sigmoidoscopy 1978 Disability Screening 1978 Alcohol/Substance Use Screening 1990 Tobacco Screening 1990 Family Planning (PISQ) 1993 Hepatitis B Vaccines (1 of 3 - 19+ 3-dose series) 1997 Pneumococcal Vaccine: Pediatrics (0 to 5 Years) and At-Risk Patients (6 to 49) Years (2 of 2 - PCV) 11/18/2013 11/18/2012 Mammogram 2018 DTaP/Tdap/Td Vaccines (1 - Tdap) 08/23/2020 08/22/2020, 11/15/2008 Pap Smear 09/13/2023 09/13/2020 COVID-19 Vaccine (1 - 2023-2 5 season) 2025 Influenza Vaccine (#1) 2025 Cervical Cancer Screening 09/13/2025 HPV/Cotest 09/13/2025 09/13/2020 Zoster Vaccines (1 of 2) 2028 RSV Patients and Patients Aged 60 years or older (1 - 1-dose 75+ series) 2053 Hepatitis C Screening Completed 09/13/2020 HIV Screening Completed 05/01/2021, 09/13/2020 HIB Vaccines Aged Out No longer eligi ble based on patient's age to complete this topic HPV Vaccines Aged Out No longer eligi ble based on patient's age to complete this topic Hepatitis A Vaccines Aged Out No long er eligible based on patient's age to complete this topic IPV Vaccines Aged Out No longer eligi ble based on patient's age to complete this topic Meningococcal B Vaccine Aged Out No l onger eligible based on patient's age to complete this topic Meningococcal Vaccine Aged Out No niki joel eligible based on patient's age to complete this topic RSV under 20 months Aged Out No longe r eligible based on patient's age to complete this topic Rotavirus Vaccines Aged Out No longer eligible based on patient's age to complete this topic Procedures Procedure Name Priority Date/Time Associated Diagnosis Comments HIV 1/2 ANTIGEN/ANTIBODY, FOURTH GENERATION W/RFL Routine 05/01/2021 2:25 PM EDT ZZZ HISTORICAL HEPATITIS C AB W/REFL TO HCV RNA, QN, PCR Routine 09/13/2020 10:36 AM EDT HPV MRNA E6/E7 Routine 09/13/2020 12:00 AM EDT THINPREP PAP Routine 09/13/2020 12:00 AM EDT from Last 3 Months or Most Recently Relevant to Health Maintenance Results * HIV 1/2 ANTIGEN/ANTIBODY,FOURTH GENERATION W/RFL (05/01/2021 2:25 PM EDT) HIV-1/2 ANTIGEN AND ANTIBODIES, 4TH GENERATION W/ REFLEX NON-REACT CHASITY NON-REACT CHASITY [facility] Comment: HIV-1 antigen and HIV-1/HIV-2 antibodies were not detected. There is no laboratory evidence of HIV infection. PLEASE NOTE: This information has been disclosed to you from records whose confidentiality may be protected by state law. If your state requires such protection, then the state law prohibits you from making any further disclosure of the information without the specific written consent of the person to whom it pertains, or as otherwise permitted by law. A general authorization for the release of medical or other information is NOT sufficient for this purpose. For additional information please refer to http://[employer].Inline.me/faq/VZH364 (This link is being provided for informational/ educational purposes only.) The performance of this assay has not been clinically validated in patients less than 2 years old. 05/01/2021 2:25 PM EDT us Brandyn Dunn GROUND EQUIPMENT MECHANIC LAB BLOOD ORDERABLES Final Result Performing Organization Address City/State/[facility] Co de Phone Number [facility] [address] * HEPATITIS C AB W/REFL TO HCV RNA, QN, PCR (09/13/2020 10:36 AM EDT) HEPATITIS C ANTIBODY NON-REACT CHASITY NON-REACT CHASITY [facility] INDEX 0.02 <1.00 [facility] Comment: HCV antibody was non-reactive. There is no laboratory evidence of HCV infection. In most cases, no further action is required. However, if recent HCV exposure is suspected, a test for HCV RNA (test code 76388) is suggested. For additional information please refer to http://education.Inline.me/faq/TNF20n5 (This link is being provided for informational/ educational purposes only.) HEPATITIS C ANTIBODY NON-REACT CHASITY NON-REACT CHASITY [facility] INDEX 0.02 <1.00 [facility] Comment: HCV antibody was non-reactive. There is no laboratory evidence of HCV infection. In most cases, no further action is required. However, if recent HCV exposure is suspected, a test for HCV RNA (test code 10517) is suggested. For additional information please refer to http://[employer].Inline.me/faq/YCH31j7 (This link is being provided for informational/ educational purposes only.) 09/13/2020 10:3 6 AM EDT us Luisa Barrera CNM HISTORICAL/NON ORDERABLE LABS Final Result Code [facility] [address] [place] [address], * THINPREP PAP (09/13/2020 12:00 AM EDT) Clinical Information: SEE COMMENT [facility] Comment:None given COMMENT [facility] Comment: EXPLANATORY NOTE: The Pap is a screening test for cervical cancer. It is not a diagnostic test and is subject to false negative and false positive results. It is most reliable when a satisfactory sample, regularly obtained, is submitted with relevant clinical findings and history, and when the Pap result is evaluated along with historic and current clinical information. Benefits Coordinator: SEE COMMENT [facility] Comment: ED, CT(ASCP) CT screening location: [address] [address] Infection SEE [facility]MENT [facility] Comment: Shift in vaginal adore suggestive of bacterial vaginosis. Interpretation/Resu lt: SEE COMMENT [facility] Comment:Negative for intraep ithelial lesion or malignancy. LMP: [facility] Comment:09/06/2020 Prev. BX: NONE GIVEN [facility] Prev. PAP: SEE COMMENT [facility] Comment:NONE GIVEN SOURCE: [facility] Comment:None given Statement Of Adequacy: SEE COMMENT [facility] Comment: Satisfactory for evaluation. Endocervical/transformation zone component absent. 09/13/2020 Luisa Barrera [facility] LAB PATHOLOGY ORDERABLES Final Result Performing Organization Address [facility] de Phone Number [facility] [address] * HPV mRNA E6/E7 (09/13/2020 12:00 AM EDT) HPV nRNA E6/E7 Not Detected Not Detected [facility] Comment: This test was performed using the APTIMA HPV Assay ([employer] This assay detects E6/E7 viral messenger RNA (mRNA) from 14 high-risk HPV types (16,18,31,33,35,39,45,51,52,56,58,59,66,68). The analytical performance characteristics of this assay have been determined by [employer]. The modifications have not been cleared or approved by the FDA. This assay has been validated pursuant to the CLIA regulations and is used for clinical purposes. 09/13/2020 Luisa ESCALONA LAB BLOOD ORDERABLES Arlin l Result Performing Organization Address [facility] de Phone Number [facility] [address] from Last 3 Months or Most Recently Relevant to Health Maintenance Insurance [facility] [address]
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
== END 2025-08-01 10:36 | disposition home or self-care (01) ==
LOC: HO.HSM 10:14
PROVIDERS: PCP Internal Medicine; Visit Provider Registered Nurse
DX: G40.909 Epilepsy, unspecified, not intractable, without status epilepticus (principal); G43.909 Migraine, unspecified, not intractable, without status migrainosus; G44.209 Tension-type headache, unspecified, not intractable
CPT/HCPCS: 99214

== ENCOUNTER → 2025-08-01 10:13 | Outpatient (BNVA) | payer MEDICAID, SELFPAY | PROVIDERS: PCP Internal Medicine; Visit Provider Registered Nurse | DX: G43.909 Migraine, unspecified, not intractable, without status migrainosus (principal); G40.909 Epilepsy, unspecified, not intractable, without status epilepticus; G44.209 Tension-type headache, unspecified, not intractable | CPT/HCPCS: 99212 ==

== ENCOUNTER 2025-08-15 09:50 | Outpatient (REF) | payer MEDICAID, SELFPAY ==
--- OUTSIDE RECORDS SUMMARY | 2024-12-29 03:30 | XMS_ITS ---
Author Organization [facility] Address [address] [place] [address] Care Team Providers Care Treating Engineer Helper Name Role Phone Jessenia Russell Primary Care Provider Unavailab Tom Choi [phone] REASON FOR VISIT screening Encounters Encounter Location Date Provider Diagnosis [facility] [place] [address] [place], [place] [phone] 12/29/2024 Tom Lam Plan Of Treatment No Information Progress Notes * DUY BROOKESDOB:1980 ( 45 yo F)Acc No.[id number]:12/29/2024 COLON WITH MAC Patient: NYDIA WHITE Provider: Wild Lam MD :1980 A ge:44 Y S ex:Female Date:12/29/2024 Address:[address] [place], [place] [phone] Pcp:Jessenia Russell Subjective: * Chief Complaints: * [...] 12/29/2024 Generated for Drake vicente/Piper/Janelleitting on: 0 08/15/2025 11:59 AM EDT
--- OUTSIDE RECORDS SUMMARY | 2025-08-15 11:59 | XMS_ITS | Clinical Summary ---
Author Organization [employer] Address [address] [place] [address] Care Team Providers Care Audit Officer Name Role Phone Unavailable Primary Care Provider Unavailabl e Encounters Date Type Department Care Team Description 07/06/2025 Telephone [facility] [address] [place], [place] [phone] Paz Villatoro [place] from Last 3 Months [...] GENERATION W/ REFLEX NON-REACT CHASITY NON-REACT CHASITY [facility] Comment: HIV-1 antigen and HIV-1/HIV-2 [...] purpose. For additional information please refer to http://[employer]faq/UAK303 (This link is being provided for informational/ educational purposes only.) The performance of this assay has not been clinically validated in patients less than 2 years old. 05/01/2021 2:25 PM EDT us Brandyn Dunn [employer] LAB BLOOD ORDERABLES Final Result Performing Organization Address City/State/[facility] Co de Phone Number [facility] [address] * HEPATITIS C AB W/REFL TO HCV RNA, QN, PCR (09/13/2020 10:36 AM EDT) HEPATITIS C ANTIBODY NON-REACT CHASITY NON-REACT CHASITY [facility] INDEX 0.02 <1.00 [facility] Comment: HCV antibody was non-reactive. There is no laboratory evidence of HCV infection. In most cases, no further action is required. However, if recent HCV exposure is suspected, a test for HCV RNA (test code 10311) is suggested. For additional information please refer to http://education.[employer]./faq/GEH77c5 (This link is being provided for informational/ educational purposes only.) HEPATITIS C ANTIBODY NON-REACT CHASITY NON-REACT CHASITY [facility] INDEX 0.02 <1.00 [facility] Comment: HCV antibody was non-reactive. There is no laboratory evidence of HCV infection. In most cases, no further action is required. However, if recent HCV exposure is suspected, a test for HCV RNA (test code 93081) is suggested. For additional information please refer to http://[employer]faq/ODT12d1 (This link is being provided for informational/ educational purposes only.) 09/13/2020 10:3 6 AM EDT us Luisa Barrera CNM HISTORICAL/NON ORDERABLE LABS Final Result [facility] [address] [place] [address], * THINPREP PAP (09/13/2020 12:00 AM EDT) Clinical Information: SEE COMMENT [facility] Comment:None given COMMENT SEE COMMENT [...] along with historic and current clinical information. Economic Adviser: SEE COMMENT [facility] Comment: ED, CT(ASCP) CT screening location: [address] [address] Infection [facility] Comment: Shift in vaginal adore suggestive of bacterial vaginosis. Interpretation/Resu lt: SEE COMMENT [facility] Comment:Negative for intraep ithelial lesion or malignancy. LMP: [facility] Comment:09/06/2020 Prev. BX: NONE [facility]IVEN [facility] Prev. PAP: SEE COMMENT [facility] Comment:NONE GIVEN SOURCE: SEE COMMENT [facility] Comment:None given Statement Of Adequacy: SEE COMMENT [facility] Comment: Satisfactory for evaluation. Endocervical/transformation zone component absent. 09/13/2020 Luisa Barrera [facility] LAB PATHOLOGY ORDERABLES Final Result Performing Organization Address [facility] de Phone Number [facility] [address] * HPV mRNA E6/E7 (09/13/2020 12:00 AM EDT) HPV nRNA E6/E7 Not Detected Not Detected [facility] Comment: This test was performed using the APTIMA HPV Assay ([employer] This assay detects E6/E7 viral messenger RNA (mRNA) from 14 high-risk HPV types (16,18,31,33,35,39,45,51,52,56,58,59,66,68). The analytical performance characteristics of this assay have been determined by [employer]. The modifications have not been cleared or approved by the FDA. This assay has been validated pursuant to the CLIA regulations and is used for clinical purposes. 09/13/2020 Luisa ESCALONA LAB BLOOD ORDERABLES Arlin l Result Performing Organization Address [facility] de Phone Number [facility] [address] from Last 3 Months or Most Recently Relevant to Health Maintenance Insurance [facility] [id number]
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
== END 2025-08-15 09:51 | disposition home or self-care (01) ==
LOC: HO.LAB 09:50
PROVIDERS: PCP Internal Medicine; Visit Provider Registered Nurse
DX: G43.909 Migraine, unspecified, not intractable, without status migrainosus (principal)
CPT/HCPCS: 36415; 85652; 86140

== ENCOUNTER 2025-09-09 09:05 | Outpatient (AMB) | payer MEDICAID, SELFPAY ==
--- OUTSIDE RECORDS SUMMARY | 2024-12-29 03:30 | XMS_ITS ---
Author Organization [facility] Address [address] [place] [address] Care Team Providers Care Triage Specialist Name Role Phone Jessenia Russell Primary Care Provider Unavailab Tom Choi [phone] REASON FOR VISIT screening Encounters Encounter Location Date Provider Diagnosis [facility] [place] [address] [place], [place] [phone] 12/29/2024 Tom Lam Plan Of Treatment No Information Progress Notes * DUY BROOKESDOB:1980 ( 45 yo F)Acc No.[id number]:12/29/2024 COLON WITH MAC Patient: NYDIA WHITE Provider: Wild Lam MD :1980 A ge:44 Y S ex:Female Date:12/29/2024 Address:[address] [place], [place] [phone] Pcp:Jessenia Russell Subjective: * Chief Complaints: * [...] 0 12/29/2024 Generated for Drake vicente/Piper/Harinder on: 09:50 AM EDT
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
--- OUTSIDE RECORDS SUMMARY | 2025-09-09 09:50 | XMS_ITS | Clinical Summary ---
Author Organization [email or web address] Address [address] [place] [address] Care Team Providers Care Application Architect Name Role Phone Unavailable Primary Care Provider Unavailabl e Encounters Date Type Department Care Team Description 07/06/2025 Telephone [facility] [address] [place] [address] Paz Villatoro [place] from Last [...] GENERATION W/ REFLEX NON-REACT CHASITY NON-REACT CHASITY [facility] Comment: HIV-1 antigen and HIV-1/HIV-2 [...] purpose. For additional information please refer to http://EasyLink.[employer]/faq/YVQ585 (This link is being provided for informational/ educational purposes only.) The performance of this assay has not been clinically validated in patients less than 2 years old. 05/01/2021 2:25 PM EDT us Brandyn Dunn [employer] LAB BLOOD ORDERABLES Final Result Performing Organization Address City/State/[facility] Co de Phone Number [facility] [address] * HEPATITIS C AB W/REFL TO HCV RNA, QN, PCR (09/13/2020 10:36 AM EDT) HEPATITIS C ANTIBODY NON-REACT CHASITY NON-REACT CHASITY [facility] INDEX 0.02 <1.00 [facility] Comment: HCV antibody was non-reactive. There is no laboratory evidence of HCV infection. In most cases, no further action is required. However, if recent HCV exposure is suspected, a test for HCV RNA (test code 96488) is suggested. For additional information please refer to http://education.[employer]/faq/LHB70g5 (This link is being provided for informational/ educational purposes only.) HEPATITIS C ANTIBODY NON-REACT CHASITY NON-REACT CHASITY [facility] INDEX 0.02 <1.00 [facility] Comment: HCV antibody was non-reactive. There is no laboratory evidence of HCV infection. In most cases, no further action is required. However, if recent HCV exposure is suspected, a test for HCV RNA (test code 32417) is suggested. For additional information please refer to http://EasyLink.[employer]/faq/FNP76p0 (This link is being provided for informational/ educational purposes only.) 09/13/2020 10:3 6 AM EDT us Luisa Barrera CNM HISTORICAL/NON ORDERABLE LABS Final Result [facility] [address] [place] [address], * THINPREP PAP (09/13/2020 12:00 AM EDT) Clinical Information: SEE COMMENT [facility] Comment:None given COMMENT SEE COMMENT [...] along with historic and current clinical information. Guest Experience Specialist: SEE COMMENT [facility] Comment: ED, CT(ASCP) CT screening location: [address] [address] Infection SEE COMMENT [facility] Comment: Shift in vaginal adore suggestive of bacterial vaginosis. Interpretation/Resu lt: SEE COMMENT [facility] Comment:Negative for intraep ithelial lesion or malignancy. LMP: SEE COMMENT [facility] Comment:09/06/2020 Prev. BX: NONE GIVEN [facility] Prev. PAP: SEE COMMENT [facility] Comment:NONE GIVEN SOURCE: SEE COMMENT [facility] Comment:None given Statement Of Adequacy: SEE COMMENT [facility] Comment: Satisfactory for evaluation. Endocervical/transformation zone component absent. 09/13/2020 Luisa Barrera [facility] LAB PATHOLOGY ORDERABLES Final Result Performing Organization Address [facility] de Phone Number [facility] [address] * HPV mRNA E6/E7 (09/13/2020 12:00 AM EDT) HPV nRNA E6/E7 Not Detected Not Detected [facility] Comment: This test was performed using the APTIMA HPV Assay ([employer] This assay detects E6/E7 viral messenger RNA (mRNA) from 14 high-risk HPV types (16,18,31,33,35,39,45,51,52,56,58,59,66,68). The analytical performance characteristics of this assay have been determined by [employer]. The modifications have not been cleared or approved by the FDA. This assay has been validated pursuant to the CLIA regulations and is used for clinical purposes. 09/13/2020 Luisa ESCALONA LAB BLOOD ORDERABLES Arlin l Result Performing Organization Address [facility] de Phone Number [facility] [address] from Last 3 Months or Most Recently Relevant to Health Maintenance Insurance [facility] C3
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
== END 2025-09-09 09:20 | disposition home or self-care (01) ==
LOC: HO.HSM 09:06
PROVIDERS: PCP Internal Medicine; Visit Provider Registered Nurse
DX: G40.909 Epilepsy, unspecified, not intractable, without status epilepticus (principal); G43.909 Migraine, unspecified, not intractable, without status migrainosus; G44.209 Tension-type headache, unspecified, not intractable
CPT/HCPCS: 99214

== ENCOUNTER → 2025-09-09 09:05 | Outpatient (BNVA) | payer MEDICAID, SELFPAY | PROVIDERS: PCP Internal Medicine; Visit Provider Registered Nurse | DX: G43.909 Migraine, unspecified, not intractable, without status migrainosus (principal); G44.209 Tension-type headache, unspecified, not intractable; G40.909 Epilepsy, unspecified, not intractable, without status epilepticus | CPT/HCPCS: 99212 ==

== ENCOUNTER 2025-11-15 13:21 | Outpatient (REF) | payer MEDICAID, SELFPAY ==
--- OUTSIDE RECORDS SUMMARY | 2024-12-29 02:30 | XMS_ITS ---
Author Organization [facility] Address [address] [place] [address] [place] [address] Care Team Providers Care Sports Trainer Name Role Phone Jessenia Russell Primary Care Provider Unavailab Tom Choi [facility] [phone] REASON FOR VISIT screening Encounters Encounter Location Date Provider Diagnosis [facility] [place] [address] [place], [place] [phone] 12/29/2024 Tom Lam Plan Of Treatment Next Appt Details Provider Name:Tom Lam , 01/27/2026 01:20:00 PM, [address] [place] [address], Suite [facility], [place], [address], Progress Notes * DUY BROOKESDOB:1980 ( 45 yo F)Acc No.[id number]:12/29/2024 COLON WITH MAC Patient: NYDIA WHITE Provider: Wild Lam MD :1980 A ge:44 Y S ex:Female Date:12/29/2024 Address:[address] [place], [place] [id number] Pcp:Jessenia Russell Subjective: * Chief Complaints: * S creening Billing Information: * Procedure Codes: * The named appointment provid er may or may not be the originator of this progress note, and it is not deemed complete until electronically signed by the appointment provider. Sign off status: Pending * Provider: Wild Lam MD Date: 0 12/29/2024 Generated for Nickii ng/Famitzig/eTransmitting on: 01/16/2025 02:30 PM EST
--- OUTSIDE RECORDS SUMMARY | 2025-11-15 14:30 | XMS_ITS | Clinical Summary ---
Author Organization [employer] Address [address] [place] [address] Care Team Providers Care Rehabilitation Liaison Name Role Phone Unavailable Primary Care Provider Unavailabl e Social History Tobacco Use Types Packs/Day Years [...] Smear 09/13/2023 09/13/2020 COVID-19 Vaccine (1 - 2024-2 6 season) 2025 Influenza Vaccine (#1) 2025 Cervical [...] W/ REFLEX NON-REACT CHASITY NON-REACT CHASITY [facility] Comment: HIV-1 antigen and HIV-1/HIV-2 [...] purpose. For additional information please refer to http://[employer].OpGen/faq/JHK697 (This link is being provided for informational/ educational purposes only.) The performance of this assay has not been clinically validated in patients less than 2 years old. 05/01/2021 2:25 PM EDT Brandyn Dunn [facility] LAB BLOOD ORDERABLES Final Result Performing Organization Address City/State/[facility] Co de Phone Number [facility] [address] * HEPATITIS C AB W/REFL TO HCV RNA, QN, PCR (09/13/2020 10:36 AM EDT) Pathologist [facility] HEPATITIS C ANTIBODY NON-REACT CHASITY NON-REACT CHASITY [facility] INDEX 0.02 <1.00 [facility] Comment: HCV antibody was non-reactive. There is no laboratory evidence of HCV infection. In most cases, no further action is required. However, if recent HCV exposure is suspected, a test for HCV RNA (test code 43259) is suggested. For additional information please refer to http://[employer].OpGen/faq/KEU26z8 (This link is being provided for informational/ educational purposes only.) HEPATITIS C ANTIBODY NON-REACT CHASITY NON-REACT CHSAITY [facility] INDEX 0.02 <1.00 [facility] Comment: HCV antibody was non-reactive. There is no laboratory evidence of HCV infection. In most cases, no further action is required. However, if recent HCV exposure is suspected, a test for HCV RNA (test code 53660) is suggested. For additional information please refer to http://education.OpGen/faq/YAC26t7 (This link is being provided for informational/ educational purposes only.) 09/13/2020 10:3 6 AM EDT Luisa Barrera CNM HISTORICAL/NON ORDERABLE LABS Final Result [facility] [address] [place] [address], [place] * THINPREP PAP (09/13/2020 12:00 AM EDT) Clinical Information: SEE COMMENT [facility] Comment:None given COMMENT SEE COMMENT [...] along with historic and current clinical information. Needle Polisher: SEE COMMENT [facility] Comment: ED, CT(ASCP) CT screening location: [place] [address] Infection SEE COMMENT [facility] Comment: Shift in vaginal adore suggestive of bacterial vaginosis. Interpretation/Resu lt: SEE COMMENT [facility] Comment:Negative for intraep ithelial lesion or malignancy. LMP: SEE COMMENT [facility] Comment:09/06/2020 Prev. BX: NONE GIVEN [facility] Prev. PAP: SEE COMMENT [facility] Comment:NONE GIVEN SOURCE: SEE COMMENT [facility] Comment:None given Statement Of Adequacy: SEE COMMENT [facility] Comment: Satisfactory for evaluation. Endocervical/transformation zone component absent. 09/13/2020 us Luisa Barrera CNM LAB PATHOLOGY ORDERABLES Final Result Performing Organization Address [facility] Co de Phone Number [facility] [address] * HPV mRNA E6/E7 (09/13/2020 12:00 AM EDT) HPV nRNA E6/E7 Not Detected Not Detected [facility] Comment: This test was performed using the APTIMA HPV Assay ([employer] This assay detects E6/E7 viral messenger RNA (mRNA) from 14 high-risk HPV types (16,18,31,33,35,39,45,51,52,56,58,59,66,68). The analytical performance characteristics of this assay have been determined by [employer]. The modifications have not been cleared or approved by the FDA. This assay has been validated pursuant to the CLIA regulations and is used for clinical purposes. 09/13/2020 [facility] Arlin l Result Performing Organization Address [facility] Co de Phone Number [facility] [address] from Last 3 Months or Most Recently Relevant to Health Maintenance [place] [address] C3
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
== END 2025-11-15 13:22 | disposition home or self-care (01) ==
LOC: HO.MAMMO 13:21
PROVIDERS: PCP Internal Medicine; Visit Provider Internal Medicine
DX: Z12.31 Encounter for screening mammogram for malignant neoplasm of breast (principal)
CPT/HCPCS: 77063; 77067

== ENCOUNTER → 2025-11-15 14:30 | Outpatient (BNV) | payer MEDICAID, SELFPAY | PROVIDERS: PCP Internal Medicine; Visit Provider Internal Medicine | DX: Z12.31 Encounter for screening mammogram for malignant neoplasm of breast (principal) | CPT/HCPCS: 77063; 77067 ==